=== PATIENT | male | born 1975 | race African-American/Black ===

== ENCOUNTER 2016-08-23 18:01 | Emergency (ER) | payer OTHER ==
[~2016-08-23] VITALS: Ht 167.6 cm; Wt 74.9 kg
[2016-08-23] MEDS ORDERED: IMITREX25 MG PO (19:29)
[2016-08-23 19:41] VITALS: BP 135/107
== END 2016-08-23 19:43 | disposition home or self-care (01) ==
LOC: EME 18:01
DX: G43.909 Migraine, unspecified, not intractable, without status migrainosus (principal); I10 Essential (primary) hypertension
CPT/HCPCS: 99281; 99284; J7030